=== PATIENT | male | born 1960 | race Hispanic/Latino ===

== ENCOUNTER 2017-02-28 07:50 | Day surgery (SDC) | payer BC ==
[2017-02-28] MEDS ORDERED: Propofol 10 mg/ml Inj (20 ML) ONE (10:21)
[2017-02-28] MEDS ORDERED: Sodium Chloride 0.9% 1,000 ML IV SCH (10:45)
[2017-02-28 11:54] VITALS: BMI 61.0
[2017-02-28 11:57] VITALS: BP 136/41; PULSE 71; RESP 18; TEMP 97.9
[2017-02-28 12:01] VITALS: O2SAT 99
== END 2017-02-28 13:15 | disposition home or self-care (01) ==
LOC: ENDO 07:50
PROVIDERS: ATTEND Internal Medicine Gastroenterology
DX: K31.7 Polyp of stomach and duodenum (principal); K29.50 Unspecified chronic gastritis without bleeding
CPT/HCPCS: 43239; 82948; 88305; 88342; J2001; J2704; J3010; J7040 ×2

== ENCOUNTER 2017-07-18 09:30 | Day surgery (SDC) | payer BC ==
[2017-06-02 09:45] VITALS: BMI 59.6
[2017-07-18] MEDS ORDERED: Sodium Chloride 0.9% 1,000 ML IV SCH (10:30)
[2017-07-18] MEDS ORDERED: Propofol 10 mg/ml Inj (20 ML) ONE (11:42)
[2017-07-18 12:58] VITALS: BP 139/66; PULSE 74; RESP 18; TEMP 98.4
[2017-07-18 13:18] VITALS: O2SAT 96
== END 2017-07-18 13:48 | disposition home or self-care (01) ==
LOC: ENDO 09:30
PROVIDERS: ATTEND Internal Medicine Gastroenterology
DX: D12.4 Benign neoplasm of descending colon (principal); K63.5 Polyp of colon; K57.30 Diverticulosis of large intestine without perforation or abscess without bleeding; K64.8 Other hemorrhoids; R19.7 Diarrhea, unspecified
CPT/HCPCS: 45380; 45385; 82948; 88305; J2001; J2704; J7040 ×2